=== PATIENT | male | born 1985 | race Caucasian/White ===

== ENCOUNTER → 2023-12-24 | Outpatient (CLI) | payer OTHER ==
--- NOTE | 2023-12-24 11:44 | XR ---
EXAMINATION TYPE: XR chest 2V DATE OF EXAM: 12/24/2023 COMPARISON: None INDICATION: Contusion, fall TECHNIQUE: Frontal and lateral views of the chest are obtained. FINDINGS: The heart size is normal. The pulmonary vasculature is normal. The lungs are clear. No pneumothorax is evident. Mediastinum appears unremarkable. Osseous structure s appear intact. IMPRESSION: 1. No acute pulmonary process. 2. No acute posttraumatic changes
--- NOTE | 2023-12-24 11:45 | XR ---
EXAMINATION TYPE: XR ribs LT DATE OF EXAM: 12/24/2023 COMPARISON: None HISTORY: Fall, pain TECHNIQUE: 2 view left RIBS FINDINGS: No acute fractures or dislocations. No pneumothorax is evident IMPRESSION: 1. No acute osseous abnormality left ribs. Follow-up can be performed as clinically indicated.
== END | disposition home or self-care (01) ==
LOC: RADXRMAIN 10:51
PROVIDERS: ATTEND Emergency Medicine
DX: S20.20XA Contusion of thorax, unspecified, initial encounter (principal); R07.81 Pleurodynia
CPT/HCPCS: 71046

== ENCOUNTER → 2024-01-07 | Outpatient (CLI) | payer OTHER ==
--- NOTE | 2024-01-07 15:00 | XR ---
EXAMINATION TYPE: XR ribs RT DATE OF EXAM: 01/07/2024 COMPARISON: Chest 12/24/2023 HISTORY: 38-year-old male left upper chest contusion, S20.20XD CONTUSION OF THORAX, UNSPECIFIED, SUBS EQU TECHNIQUE: 4 views FINDINGS: No displaced left rib fracture. Some strandy atelectasis at the left base. No pleural effus ion or pneumothorax. IMPRESSION: No displaced left rib fracture seen.
== END | disposition home or self-care (01) ==
LOC: RADXRMAIN 12:10
PROVIDERS: ATTEND Emergency Medicine
DX: S20.20XD Contusion of thorax, unspecified, subsequent encounter (principal); X58.XXXD Exposure to other specified factors, subsequent encounter